=== PATIENT | female | born 1945 | race Caucasian/White ===

== ENCOUNTER → 2016-11-26 16:40 | Outpatient (CLI) | payer MEDICARE, OTHER ==
[2012-01-05 06:33] VITALS: BMI 22.5
== END | disposition home or self-care (01) ==
LOC: D.MAMMO 14:45
DX: Z12.31 Encounter for screening mammogram for malignant neoplasm of breast (principal)

== ENCOUNTER → 2016-12-31 16:59 | Outpatient (CLI) | payer MEDICARE, OTHER ==
[2012-01-05 06:33] VITALS: BMI 22.5
== END | disposition home or self-care (01) ==
LOC: D.MAMMO 14:30
DX: R92.8 Other abnormal and inconclusive findings on diagnostic imaging of breast (principal)

== ENCOUNTER 2018-03-30 04:06 | Emergency (ER) | payer MEDICARE, OTHER ==
[~2018-03-30] VITALS: Ht 172.7 cm; Wt 70.9 kg
[2018-03-30 04:08] VITALS: Ht 172.7 cm; Wt 70.9 kg
[2018-03-30] MEDS ORDERED: MOBIC7.5 MG (04:10)
[2018-03-30] MEDS ORDERED: BAYER CHEWABLE81 MG (04:10)
[2018-03-30] MEDS ORDERED: SYNTHROID50 MCG (04:10)
[2018-03-30] MEDS ORDERED: ROXICODONE30 MG (04:10)
[2018-03-30] MEDS ORDERED: NEXIUM40 MG (04:11)
[2018-03-30] MEDS ORDERED: HYDROCHLOROTH12.5 M1 (04:11)
[2018-03-30] MEDS ORDERED: COZAAR50 MG (04:11)
[2018-03-30 05:24] LABS: BASOPHILS 0.3 % (0-2); EOSINOPHILS 2.9 % (0-7); HEMATOCRIT 36.7 % (36.0-48.0); HEMOGLOBIN 12.6 g/dL (12-16); IMMATURE GRANULOCYTES 0.3 % (0-5); LYMPHOCYTES 24.4 % (15-50); MCH 31.2 pg (26.0-34.0); MCHC 34.3 g/dL (31.0-37.0); MCV 90.8 fL (80.0-100.0); MEAN PLATELET VOLUME 10.5 fL (7.4-10.4); MONOCYTES 9.8 % (2-11); NEUTROPHILS 62.3 % (40-80); PLATELET COUNT 224 10x3/uL (130-400); RBC 4.04 10x6/uL (4.00-5.40); RDW 12.5 % (11.5-14.5); WBC 6.2 10x3/uL (4.8-10.8)
[2018-03-30 05:43] LABS: ALBUMIN 3.5 g/dL (3.4-5.0); ANION GAP 12.4 mmol/L (8-16); BILIRUBIN - TOTAL 0.5 mg/dL (0.2-1.3); CALCIUM 9.2 mg/dL (8.5-10.1); CREATININE - SERUM 0.9 mg/dL (0.6-1.3); POTASSIUM - SERUM 3.4 mmol/L (3.5-5.1); PROTEIN - SERUM 6.6 g/dL (6.4-8.2)
[2018-03-30 06:28] LABS: APPEARANCE HAZY (CLEAR); BILIRUBIN NEGATIVE (NEGATIVE); COLOR STRAW (YELLOW); GLUCOSE NEGATIVE (NEGATIVE); KETONE NEGATIVE (NEGATIVE); NITRITE NEGATIVE (NEGATIVE); PROTEIN NEGATIVE (NEGATIVE); SPECIFIC GRAVITY 1.005 (1.005-1.020); UROBILINOGEN NORMAL (NORMAL)
[2018-03-30 06:29] LABS: AMORPHOUS SEDIMENT <1+ /lpf (NONE SEEN); BACTERIA MODERATE /hpf (NONE SEEN); EPITHELIAL CELLS 0-5 /hpf (0-5); RED CELLS - URINE 0-5 /hpf (0-5)
[2018-03-30] MEDS ORDERED: MACROBID100 MG PO (06:40)
[2018-03-30 07:02] VITALS: BP 119/64
== END 2018-03-30 06:50 | disposition home or self-care (01) ==
LOC: D.ER 04:06
PROVIDERS: Family Medicine
DX: M54.9 Dorsalgia, unspecified (principal); K59.00 Constipation, unspecified; N39.0 Urinary tract infection, site not specified; K21.9 Gastro-esophageal reflux disease without esophagitis; E07.9 Disorder of thyroid, unspecified

== ENCOUNTER → 2019-03-23 17:28 | Outpatient (CLI) | payer MEDICARE, OTHER ==
[2018-03-30 04:08] VITALS: BMI 23.7
[~2019-03-23 17:28] MED LIST: BAYER CHEWABLE81 MG; COZAAR50 MG; HYDROCHLOROTH12.5 M1; MACROBID100 MG PO; MOBIC7.5 MG; NEXIUM40 MG; ROXICODONE30 MG; SYNTHROID50 MCG
== END | disposition home or self-care (01) ==
LOC: D.MAMMO 16:00
PROVIDERS: ATTEND Family Medicine Adult Medicine
DX: Z12.31 Encounter for screening mammogram for malignant neoplasm of breast (principal)